=== PATIENT | male | born 1970 | race Caucasian/White ===

== ENCOUNTER 2016-11-27 11:43 | Emergency (ER) | payer MEDICAID ==
[2016-11-27 11:43] VITALS: BMI 90.0
[2016-11-27 11:47] VITALS: BP 118/76; PULSE 86; RESP 17; TEMP 98.8; O2SAT 100
--- NOTE | 2016-11-27 13:24 | ED PDOC ---
HPI: Abdomen Time Seen by Provider: 11/27/16 11:54 Chief Complaint (Nursing): Abdominal Pain History Per: Patient History/Exam Limitations: no limitations Onset/Duration Of Symptoms: Days (three) Pain Scale Rating Of: 5 Location Of Pain/Discomfort: LLQ Quality Of Discomfort: Sharp Associated Symptoms: Diarrhea Exacerbating Factors: None Alleviating Factors: None Last Bowel Movement: Today Additional Complaint(s): . Past Medical History Vital Signs: Last Vital Signs Temp 98.8 F 11/27/16 11:44 Pulse 86 11/27/16 11:44 Resp 17 11/27/16 11:44 BP 118/76 11/27/16 11:44 Pulse Ox 100 11/27/16 11:44 - Medical History PMH: Asthma, Benign Prostatic Hyperplasia, CHF, COPD, Depression, Diverticulitis , HTN, Hypercholesterolemia, Hyperlipidemia, Hypothyroidism, Kidney Stones ( KIDNEY STENT), Paranoia Denies: Anxiety, Bipolar Disorder, Diabetes, Hepatitis, HIV, Personality Disorder, Chronic Kidney Disease, Schizophrenia, Seizures, Sexually Transmitted Disease - Family History Family History: States: Diabetes, Hypertension - Immunization History Hx Tetanus Toxoid Vaccination: No Hx Influenza Vaccination: No Hx Pneumococcal Vaccination: No - Home Medications Home Medications: Ambulatory Orders Medication Instructions Recorded Albuterol Sulfate [Ventolin Hfa] 2 puff IH Q4H PRN 03/25/15 Aspirin [Ecotrin] 81 mg PO DAILY 03/25/15 Brimonidine Tartrate/Timolol 1 drop RIGHTEYE Q12H 03/25/15 [Combigan 0.2%-0.5% Eye Drops] Carvedilol [Coreg] 25 mg PO Q12H 03/25/15 Cyanocobalamin [Vitamin B12 100 100 mcg PO DAILY 03/25/15 mcg Tab] Fluticasone/Salmeterol 250/50 1 puff IH Q12H 03/25/15 [Advair Diskus 250/50] Furosemide [Lasix] 40 mg PO BID 03/25/15 Garlic/Parsley [Garlic & Parsley] 1 tab PO DAILY 03/25/15 Ipratropium/Albuterol Sulfate 1 puff IH Q6H PRN 03/25/15 [Combivent Respimat Inhal [place]] Latanoprost [Xalatan] 1 drop RIGHTEYE HS 03/25/15 Losartan/Hydrochlorothiazide 1 tab PO DAILY 03/25/15 [Hyzaar 100-12.5 Tablet] Montelukast [Singulair] 10 mg PO DAILY 03/25/15 Multivit,Iron,Min 5/Folic Acid 1 tab PO DAILY 03/25/15 [Strovite Forte Caplet] Olopatadine 0.1% Opht [Patanol 1 drop RIGHTEYE BID PRN 03/25/15 0.1% Opht Soln] Polyethylene Glycol/Polyvinyl 1 drop EACHEYE TID 03/25/15 [Artificial Tears] Pravastatin Sodium [Pravachol] 40 mg PO HS 03/25/15 Spironolactone 25 mg PO DAILY 03/25/15 - Allergies Allergies/Adverse Reactions: Allergies Allergy/AdvReac Type Severity Reaction Status Date / Time hydromorphone HCl Allergy SHORTNESS Verified 09/29/15 07:43 [From Dilaudid] OF BREATH morphine Allergy HEADACHE Verified 09/29/15 07:43 Review of Systems Gastrointestinal: Positive for: Abdominal Pain (See HPI) Physical Exam - Reviewed Vital Signs Reviewed: Yes - Physical Exam Appears: Positive for: No Acute Distress (Morbid Obese) Neck: Positive for: Supple (Negative JVD) Cardiovascular/Chest: Positive for: Regular Rate, Rhythm. Negative for: Murmur Respiratory: Positive for: Normal Breath Sounds. Negative for: Wheezing, Respiratory Distress Gastrointestinal/Abdominal: Positive for: Bowel Sounds (present), Tenderness ( Moderate Left lower quadrant). Negative for: Distended, Guarding Extremity: Positive for: Pedal Edema (+2 pitting edema bilaterally up to ankle) . Negative for: Tenderness, Calf Tenderness - ECG O2 Sat by Pulse Oximetry: 100 - Progress ED Course And Treament: Pt. wants to leave. Pt. advised risks and benefits of diagnosis and treatment. Pt. offered various diagnosis and treatment modalities. Pt. refuses any further treatment. Pt. signs out against medical advice. Disposition - Clinical Impression Clinical Impression: Abdominal pain Discussed With : Maria T Robertson - Disposition Disposition: Against Medical Advice Disposition Time: 13:24 Condition: GUARDED
== END 2016-11-27 13:11 | disposition left against medical advice (07) ==
LOC: H.ER 11:43
DX: R10.9 Unspecified abdominal pain (principal); E03.9 Hypothyroidism, unspecified; E78.00 Pure hypercholesterolemia, unspecified; F32.9 Major depressive disorder, single episode, unspecified; I10 Essential (primary) hypertension; I50.9 Heart failure, unspecified; J44.9 Chronic obstructive pulmonary disease, unspecified; J45.909 Unspecified asthma, uncomplicated; N40.0 Benign prostatic hyperplasia without lower urinary tract symptoms; Z79.82 Long term (current) use of aspirin